=== PATIENT | male | born 1960 | race African-American/Black ===

== ENCOUNTER 2018-08-18 10:45 | Inpatient (IN) | payer OTHER ==
[2018-08-18 11:56] VITALS: BMI 28.8
--- NOTE | 2018-08-18 13:07 | HP ---
COWS - Scale Resting Pulse: 0= [place] 80 or Below Sweatin= Chills/Flushing Restless Observation: 1= Difficult to Sit Still Pupil Size: 2= Moderately Dilated Bone or Joint Aches: 2= Severe Diffuse Aches Runny Nose/ Eye Tearin= None GI Upset > 30mins: 2= Nausea/Diarrhea Tremor Observation: 2= Slight Tremor Visible Yawning Observation: 0= None Anxiety or Irritability: 2=Irritable/Anxious Goose Flesh Skin: 0=Smooth Skin COWS Score: 12 CIWA Score Nausea/Vomitin Muscle Tremors: 1-None Visible, but [place] Anxiety: 3 Agitation: 2 Paroxysmal Sweats: 2 Orientation: 0-Oriented Tacttile Disturbances: 0-None Auditory Disturbances: 0-None Visual Disturbances: 0-None Headache: 3-Moderate CIWA-Ar Total Score: 13 - Admission Criteria [facility]AS[facility] Guidelines: Admission for Medically Managed Detox: Requires at least one of the followin. CIWA greater than 12 2. Seizures within the past 24 hours 3. Delirium tremens within the past 24 hours 4. Hallucinations within the past 24 hours 5. Acute intervention needed for co occurring medical disorder 6. Acute intervention needed for co occurring psychiatric disorder 7. Severe withdrawal that cannot be handled at a lower level of care (continued vomiting, continued diarrhea, abnormal vital signs) requiring intravenous medication and/or fluids 8. Admission [facility] Chief Complaint: HEROIN/ETOH WITHDRAWAL SYMPTOMS Allergies/Adverse Reactions: Allergies Allergy/AdvReac Type Severity Reaction Status Date / Time No Known Allergies Allergy Verified 08/18/18 12:09 History of Present Illness: PATIENT PRESENTS WITH ETOH/HEROIN WITHDRAWAL SYMPTOMS. THIS IS PATIENTS FIRST DETOX ADMISSION [facility] BUT ATTEMPTED DETOX AT [facility] IN 06/2018. PATIENT ALSO WAS IN ER 10 DAYS FOR GI DISTRESS BUT WAS NOT ADMITTED. PATIENT GIVEN LIBRIUM IN ER. PATIENT STARTED DRINKING AT AGE 16 AND SNIFFING HEROIN/COCAINE AT AGE 14. PATIENT HAD PERIOD OF IV HEROIN USE BUT HAS BEEN SNIFFING FOR THE PAST 12 YEARS. PATIENT DRINKS 4 24 OUNCE CANS OF BEER DAILY, LAST DRINK LAST NIGHT, AND SNIFFS 8-10 BAGS OF HEROIN DAILY,, LAST TIME HE USED WAS LAST NIGHT. PT DENIES SEIZURES, BLACK OUTS, OVERDOSE AND FALLS. PATIENT PMH +PPD, HEPATITIS C ( UNTREATED) AND ANXIETY/DEPRESSION. DENIES SI/HI AND SUICIDE ATTEMPTS. + MARIJUANA USE. Exam Limitations: No Limitations - Ebola screening Have you traveled outside of the country in the last 21 days: No Have you had contact with anyone from an Ebola affected area: No Have you been sick,other than usual withdrawal symptoms: No Do you have a fever: No - Review of Systems Constitutional: Chills, Night Sweats, Changes in sleep EENT: reports: No Symptoms Reported Respiratory: reports: No Symptoms reported Cardiac: reports: No Symptoms Reported GI: reports: Nausea, Poor Fluid Intake, Abdominal cramping : reports: No Symptoms Reported Musculoskeletal: reports: Back Pain, Muscle Pain Integumentary: reports: Flushing, Sweating Neuro: reports: Headache, Tremors Endocrine: reports: Flushing Hematology: reports: No Symptoms Reported Psychiatric: reports: Orientated x3, Anxious, Depressed Patient History - Patient Medical History Hx Anemia: No Hx Asthma: No Hx Chronic Obstructive Pulmonary Disease (COPD): No Hx Cancer: No Hx Cardiac Disorders: No Hx Congestive Heart Failure: No Hx Hypertension: No Hx Hypercholesterolemia: No Hx Pacemaker: No HX Cerebrovascular Accident: No Hx Seizures: No Hx Dementia: No Hx Gastrointestinal Disorders: No Hx Liver Disease: No Hx Genitourinary Disorders: No Hx Sexually Transmitted Disorders: No Hx Renal Disease (ESRD): No Hx Thyroid Disease: No Hx Human Immunodeficiency Virus (HIV): No Hx Hepatitis C: Yes (UNTREATED) Hx Depression: Yes Hx Suicide Attempt: No Hx Bipolar Disorder: No Hx Schizophrenia: No - Patient Surgical History Past Surgical History: No - PPD History Previous Implant?: Yes Documented Results: Positive w/o proof PPD to be Administered?: No - Smoking Cessation Smoking history: Current every day smoker Have you smoked in the past 12 months: Yes Aproximately how many cigarettes per day: 6 Hx Chewing Tobacco Use: No Initiated information on smoking cessation: Yes 'Breaking Loose' booklet given: 08/18/18 - Substance & Tx. History Hx Alcohol Use: Yes Hx Substance Use: Yes Substance Use Type: Alcohol, Cocaine, Heroin Hx Substance Use Treatment: Yes - Substances Abused Cocaine Route: Smoking Frequency: Daily Amount used: 1gm Age of first use: 28 Date of Last Use: 08/17/18 Heroin Route: sniff Frequency: Daily Amount used: 10 bags Age of first use: 14 Date of Last Use: 08/17/18 Alcohol Route: Oral Frequency: Daily Amount used: 2-6 (24oz) Age of first use: 16 Date of Last Use: 08/17/18 Marijuana/Hashish Route: Smoking Frequency: Daily Amount used: VARIES Age of first use: 16 Date of Last Use: 08/17/18 Family Disease History - Family Disease History Family Disease History: Diabetes: Mother (ALIVE) Admission Physical Exam [facility] - Vital Signs Vital Signs: Vital Signs - 24 hr 08/18/18 11:54 Temperature 99.3 F Pulse Rate 68 Respiratory 19 Rate Blood Pressure 119/74 - Physical General Appearance: Yes: Nourished, Appropriately Dressed, Tremorous, Sweating, Anxious HEENTM: Yes: EOMI, Hearing grossly Normal, Normal ENT Inspection, Normocephalic , Normal Voice, MORGAN, Pharynx Normal Respiratory: Yes: Chest Non-Tender, Lungs Clear, Normal Breath Sounds, No Respiratory Distress, No Accessory Muscle Use Neck: Yes: No masses,lesions,Nodules, Supple, Trachea in good position Breast: Yes: Breast Exam Deferred Cardiology: Yes: Regular Rhythm, Regular Rate, S1, S2 Abdominal: Yes: Normal Bowel Sounds, Non Tender, Soft Genitourinary: Yes: Within Normal Limits Musculoskeletal: Yes: Back pain, Muscle Pain Extremities: Yes: Normal Inspection, Normal Range of Motion, Non-Tender, Tremors Neurological: Yes: jukebox coin collector II-XII NML intact, Fully Oriented, Alert, Motor Strength 5/5, Normal Response, Depressed Affect Integumentary: Yes: Normal Color, Warm, Moist Lymphatic: Yes: Within Normal Limits - Diagnostic (1) Opioid dependence with withdrawal Current Visit: Yes Status: Acute (2) Alcohol dependence with uncomplicated withdrawal Current Visit: Yes Status: Acute (3) Cocaine dependence Current Visit: Yes Status: Chronic Qualifiers: Substance use status: uncomplicated Qualified Code(s): F14.20 - Cocaine dependence, uncomplicated (4) Marijuana dependence Current Visit: Yes Status: Chronic (5) Anxiety Current Visit: Yes Status: Suspected (6) Depressed affect Current Visit: Yes Status: Suspected Cleared for Admission [facility] - Detox or Rehab [facility] Level of Care: Medically Managed Detox Regimen/Protocol: Methadone/Librium [facility] Breath Alcohol Content Breath Alcohol Content: 0 Urine Drug Screen - Results Drug Screen Negative: No Urine Drug Screen Results: THC-Marijuana, ALETA-Cocaine, BZO-Benzodiazepines
[2018-08-18] MEDS ORDERED: hydrOXYzine PAMOATE 50 MG CAPSULE (FP) PO PRN (13:19)
[2018-08-18] MEDS ORDERED: P-EPHED 60MG/TRIPROLIDI 2.5MG TABLET PO PRN (13:19)
[2018-08-18] MEDS ORDERED: MAGNESIUM HYDROX 2400MG/30ML ORAL SUSPENSION 30 ML CUP PO PRN (13:19)
[2018-08-18] MEDS ORDERED: MAG HYDROX/AL HYDROX/SIMETH 30 ML UNIT-DOSE CUP PO PRN (13:19)
[2018-08-18] MEDS ORDERED: MAGNESIUM CITRATE 300 ML BOTTLE PO PRN (13:19)
[2018-08-18] MEDS ORDERED: guaiFENesin/D-METHORPHAN HB 10 ML UNIT-DOSE CUPS PO PRN (13:19)
[2018-08-18] MEDS ORDERED: NICOTINE POLACRILEX 2 MG GUM BUC PRN (13:19)
[2018-08-18] MEDS ORDERED: ACETAMINOPHEN 325 MG TABLET (FP) PO PRN (13:19)
[2018-08-18] MEDS ORDERED: LOPERAMIDE HCL 2 MG CAPSULE PO PRN (13:19)
[2018-08-18] MEDS ORDERED: IBUPROFEN 400 MG TABLET (FP) PO PRN (13:19)
[2018-08-18] MEDS ORDERED: MENTHOL/PHENOL 1 EACH UD MM PRN (13:19)
[2018-08-18] MEDS ORDERED: chlordiazePOXIDE HCL 25 MG CAPSULE PO PRN (13:20)
[2018-08-18] MEDS ORDERED: METHADONE HCL 10 MG TABLET (FOR DETOX USE ONLY) PO ONE ×2 (14:15→23:00)
--- NOTE | 2018-08-18 16:40 | CONSULT ---
[facility] Psychiatric Consult - Data Date of interview: 08/18/18 Admission source: [facility] Identifying data: Patient is a 57 year old single male, father of one, unemployed (denies receiving financial assistance), and currently homeless. This is patient's first admission to detox at [facility]. Patient admitted to for alcohol and cocaine dependence. Substance Abuse History: - Smoking Cessation. Smoking history: Current every day smoker. Have you smoked in the past 12 months: Yes. Aproximately how many cigarettes per day: 6. Hx Chewing Tobacco Use: No. Initiated information on smoking cessation: Yes. 'Breaking Loose' booklet given: 08/18/18. - Substance & Tx. History. Hx Alcohol Use: Yes. Hx Substance Use: Yes. Substance Use Type : Alcohol, Cocaine, Heroin. Hx Substance Use Treatment: Yes. - Substances Abused. Cocaine. Route: Smoking. Frequency: Daily. Amount used: 1gm. Age of first use: 28. Date of Last Use: 08/17/18. Heroin. Route: sniff. Frequency: Daily. Amount used: 10 bags. Age of first use: 14. Date of Last Use: 08/17/18. Alcohol. Route: Oral. Frequency: Daily. Amount used: 2-6 ( 24oz). Age of first use: 16. Date of Last Use: 08/17/18. Marijuana/ Hashish. Route: Smoking. Frequency: Daily. Amount used: VARIES. Age of first use: 16. Date of Last Use: 08/17/18 Medical History: Hep C Psychiatric History: Patient denies h/o psychiatric hospitalization and suicide attempt. Currently is not seeing an outpatient psychiatrist. States he was in a rehab program at [facility] in [place], recently discharged yesterday. States he was prescribed lexapro and risperdal. Has also been tried on celexa, vistaril, and buspar. As per pharmacy claims most recent prescriptions consist of lexapro 10mg + Remeron 15mg qhs. Presently, patient reports anxiety and poor sleep. Physical/Sexual Abuse/Trauma History: denies. Mental Status Exam - Mental Status Exam Alert and Oriented to: Time, Place, Person Cognitive Function: Good Patient Appearance: Well Groomed Mood: Euthymic Affect: Mood Congruent Patient Behavior: Appropriate, Cooperative Speech Pattern: Clear, Appropriate Voice Loudness: Normal Thought Process: Intact, Goal Oriented Thought Disorder: Not Present Hallucinations: Denies Suicidal Ideation: Denies Homicidal Ideation: Denies Insight/Judgement: Poor Sleep: Fair Appetite: Fair Muscle strength/Tone: Normal Gait/Station: Normal Psychiatric Findings - Problem List ([place] 1, 2,3) (1) Substance induced mood disorder Current Visit: Yes Status: Acute (2) Substance-induced sleep disorder Current Visit: Yes Status: Acute (3) Alcohol dependence with uncomplicated withdrawal Current Visit: Yes Status: Acute (4) Cocaine dependence Current Visit: Yes Status: Chronic Qualifiers: Substance use status: uncomplicated Qualified Code(s): F14.20 - Cocaine dependence, uncomplicated (5) Marijuana dependence Current Visit: Yes Status: Chronic - Initial Treatment Plan Initial Treatment Plan: Psychoeducation provided. Detoxification in progress. Will order Lexapro 10mg + Mirtzapine 15mg qhs. Benefits and side effects discussed. Verbal consent given.
[2018-08-18 21:29] LABS: URINE APPEARANCE CLEAR; URINE BILIRUBIN NEGATIVE (<2.0 mg/dL); URINE COLOR YELLOW; URINE GLUCOSE (UA) NEGATIVE (NEGATIVE); URINE KETONE NEGATIVE (NEGATIVE); URINE LEUK ESTERASE NEGATIVE (NEGATIVE); URINE NITRITE NEGATIVE (NEGATIVE); URINE PROTEIN NEGATIVE (NEGATIVE); URINE UROBILINOGEN 4.0 E.U/dl mg/dL (0.2-1.0)
[2018-08-18] MEDS: MIRTAZAPINE 15 MG TABLET (FP) PO SCH (22:34)
[2018-08-18] MEDS: THIAMINE HCL 100 MG TABLET (FP) PO SCH (22:34)
[2018-08-18] MEDS: chlordiazePOXIDE HCL 25 MG CAPSULE PO SCH ×2 (22:35)
[2018-08-19] MEDS: chlordiazePOXIDE HCL 25 MG CAPSULE PO SCH ×4 (05:45→22:24)
--- NOTE | 2018-08-19 08:55 | EKG ---
Test Reason : Blood Pressure : / mmHG Vent. Rate : 070 BPM Atrial Rate : 070 BPM P-R Int : 158 ms QRS Dur : 088 ms QT Int : 400 ms P-R-T Axes : 051 040 022 degrees QTc Int : 432 ms NORMAL SINUS RHYTHM NORMAL ECG NO PREVIOUS ECGS AVAILABLE Confirmed by GERARD LOO MD ([id number]) on 08/19/2018 8:55:31 AM Referred By: Confirmed By:GERARD LOO MD
[2018-08-19 10:00] LABS: HEMATOCRIT 36.8 % (35.4-49); HEMOGLOBIN 11.5 GM/dL (11.7-16.9); MCH 28.3 pg (25.7-33.7); MCHC 31.2 g/dl (32.0-35.9); MEAN CELL VOLUME 90.5 fl (80-96); MEAN PLT VOLUME 9.4 fl (7.5-11.1); PLATELET COUNT 248 K/MM3 (134-434); RBC 4.06 M/mm3 (4.00-5.60); RDW 12.6 % (11.9-15.9); WHITE BLOOD COUNT 5.1 K/mm3 (4.0-10.0)
[2018-08-19] MEDS ORDERED: METHADONE HCL 10 MG TABLET (FOR DETOX USE ONLY) PO SCH (10:00)
[2018-08-19] MEDS: PRENATAL VITAMINS W/ FOLIC ACID TABLET (FP) PO SCH (10:07)
[2018-08-19] MEDS: ESCITALOPRAM OXALATE 10 MG TABLET (FP) PO SCH (10:07)
[2018-08-19 10:51] LABS: ALBUMIN 3.8 g/dl (3.4-5.0); ALK PHOS 106 U/L (45-117); ANION GAP 7 MMOL/L (8-16); BILIRUBIN,TOTAL 0.8 mg/dL (0.2-1); BLOOD UREA NITROGEN 15 mg/dL (7-18); CALCIUM 9.4 mg/dL (8.5-10.1); CHLORIDE 101 mmol/L (98-107); CO2 30 mmol/L (21-32); CREATININE 1.1 mg/dL (0.55-1.3); GLUCOSE,RANDOM 108 mg/dL (74-106); SGOT/AST 53 U/L (15-37); SGPT/ALT 88 U/L (13-61); SODIUM 139 mmol/L (136-145); TOT PROT 7.2 g/dl (6.4-8.2)
--- NOTE | 2018-08-19 12:13 | PN ---
[facility] CIWA - CIWA Score Nausea/Vomitin Muscle Tremors: 4-Moderate,w/Arms Extend Anxiety: 4-Mod. Anxious/Guarded Agitation: 2 Paroxysmal Sweats: 3 Orientation: 0-Oriented Tacttile Disturbances: 0-None Auditory Disturbances: 0-None Visual Disturbances: 0-None Headache: 1-Very Mild CIWA-Ar Total Score: 16 BHS COWS - Scale Resting Pulse: 0= [place] 80 or Below Sweatin= Chills/Flushing Restless Observation: 3= Extraneous Movement Pupil Size: 0= Normal to Room Light Bone or Joint Aches: 2= Severe Diffuse Aches Runny Nose/ Eye Tearin= Runny Nose/Eyes GI Upset > 30mins: 3= Vomiting/Diarrhea Tremor Observation of Outstretched Hands: 2= Slight Tremor Visible Yawning Observation: 0= None Anxiety or Irritability: 2=Irritable/Anxious Goose Flesh Skin: 0=Smooth Skin COWS Score: 15 BHS Progress Note (SOAP) Subjective: Headache, LBP, tremor, interrupted sleep Objective: 08/19/18 12:11 Last Vital Signs Temp Pulse Resp BP Pulse Ox 98.6 F 67 18 98/66 08/19/18 10:00 08/19/18 10:00 08/19/18 10:00 08/19/18 10:00 Hypotension noted Laboratory Tests 08/18/18 08/19/18 08/19/18 14:22 06:30 06:30 WBC 5.1 RBC 4.06 Hgb 11.5 L Hct 36.8 MCV 90.5 MCH 28.3 MCHC 31.2 L RDW 12.6 Plt Count 248 MPV 9.4 Sodium Potassium Chloride Carbon Dioxide Anion Gap BUN Creatinine Creat Clearance w eGFR Random Glucose Calcium Total Bilirubin AST ALT Alkaline Phosphatase Total Protein Albumin Urine Color Yellow Urine Appearance Clear Urine pH 6.0 Ur Specific [place] 1.024 Urine Protein Negative Urine Glucose (UA) Negative Urine Ketones Negative Urine Blood Negative Urine Nitrite Negative Urine Bilirubin Negative Urine Urobilinogen 4.0 e.u/dl Ur Leukocyte Esterase Negative HIV 1&2 Antibody Screen Negative HIV P24 Antigen Negative 08/19/18 06:30 WBC RBC Hgb Hct MCV MCH MCHC RDW Plt Count MPV Sodium 139 Potassium 5.0 Chloride 101 Carbon Dioxide 30 Anion Gap 7 L BUN 15 Creatinine 1.1 Creat Clearance w eGFR > 60 Random Glucose 108 H Calcium 9.4 Total Bilirubin 0.8 AST 53 H ALT 88 H Alkaline Phosphatase 106 Total Protein 7.2 Albumin 3.8 Urine Color Urine Appearance Urine pH Ur Specific [place] Urine Protein Urine Glucose (UA) Urine Ketones Urine Blood Urine Nitrite Urine Bilirubin Urine Urobilinogen Ur Leukocyte Esterase HIV 1&2 Antibody Screen HIV P24 Antigen Labs reviewed Assessment: 08/19/18 12:12 Withdrawal symptoms Plan: Continue detox Encouraged PO water intake
[2018-08-19] MEDS: MELATONIN 5 MG TABLETS PO PRN (22:24)
[2018-08-19] MEDS: MIRTAZAPINE 15 MG TABLET (FP) PO SCH (22:24)
[2018-08-19] MEDS: THIAMINE HCL 100 MG TABLET (FP) PO SCH (22:24)
[2018-08-20] MEDS: chlordiazePOXIDE HCL 25 MG CAPSULE PO SCH ×2 (05:33→10:08)
[2018-08-20] MEDS: PRENATAL VITAMINS W/ FOLIC ACID TABLET (FP) PO SCH (10:07)
[2018-08-20] MEDS: ESCITALOPRAM OXALATE 10 MG TABLET (FP) PO SCH (10:08)
[2018-08-20] MEDS: METHADONE HCL 5 MG TABLET (FOR DETOX USE ONLY) PO SCH (10:08)
--- NOTE | 2018-08-20 12:23 | PN ---
[facility] CIWA - CIWA Score Nausea/Vomitin-No Nausea/No Vomiting Muscle Tremors: None Anxiety: 2 Agitation: 2 Paroxysmal Sweats: 1-Minimal [place] Moist Orientation: 0-Oriented Tacttile Disturbances: 0-None Auditory Disturbances: 0-None Visual Disturbances: 0-None Headache: 0-None Present CIWA-Ar Total Score: 5 S COWS - Scale Resting Pulse: 0= [place] 80 or Below Sweatin= Chills/Flushing Restless Observation: 1= Difficult to Sit Still Pupil Size: 1= Pupils >than Normal Bone or Joint Aches: 0= None Runny Nose/ Eye Tearin= None GI Upset > 30mins: 0= None Tremor Observation of Outstretched Hands: 0= None Yawning Observation: 0= None Anxiety or Irritability: 2=Irritable/Anxious Goose Flesh Skin: 0=Smooth Skin COWS Score: 5 S Progress Note (SOAP) Subjective: PATIENT ANXIOUS/RESTLESS WITH OCCASIONAL CHILLS/SWEATING. Objective: 08/20/18 12:22 Vital Signs Temperature 96.6 F L 08/20/18 09:18 Pulse Rate 77 08/20/18 09:18 Respiratory Rate 18 08/20/18 09:18 Blood Pressure 105/60 08/20/18 09:18 O2 Sat by Pulse Oximetry (%) Laboratory Tests 08/18/18 08/19/18 08/19/18 14:22 06:30 06:30 WBC 5.1 RBC 4.06 Hgb 11.5 L Hct 36.8 MCV 90.5 MCH 28.3 MCHC 31.2 L RDW 12.6 Plt Count 248 MPV 9.4 Sodium Potassium Chloride Carbon Dioxide Anion Gap BUN Creatinine Creat Clearance w eGFR Random Glucose Calcium Total Bilirubin AST ALT Alkaline Phosphatase Total Protein Albumin Urine Color Yellow Urine Appearance Clear Urine pH 6.0 Ur Specific [place] 1.024 Urine Protein Negative Urine Glucose (UA) Negative Urine Ketones Negative Urine Blood Negative Urine Nitrite Negative Urine Bilirubin Negative Urine Urobilinogen 4.0 e.u/dl Ur Leukocyte Esterase Negative RPR Titer HIV 1&2 Antibody Screen Negative HIV P24 Antigen Negative 08/19/18 08/19/18 06:30 06:30 WBC RBC Hgb Hct MCV MCH MCHC RDW Plt Count MPV Sodium 139 Potassium 5.0 Chloride 101 Carbon Dioxide 30 Anion Gap 7 L BUN 15 Creatinine 1.1 Creat Clearance w eGFR > 60 Random Glucose 108 H Calcium 9.4 Total Bilirubin 0.8 AST 53 H ALT 88 H Alkaline Phosphatase 106 Total Protein 7.2 Albumin 3.8 Urine Color Urine Appearance Urine pH Ur Specific [place] Urine Protein Urine Glucose (UA) Urine Ketones Urine Blood Urine Nitrite Urine Bilirubin Urine Urobilinogen Ur Leukocyte Esterase RPR Titer Nonreactive HIV 1&2 Antibody Screen HIV P24 Antigen PE: SKIN WARM AND DRY ALERT AND ORIENTED X 3 EXT FULL ROM AMB AD JAMES MILDLY RESTLESS, PACING IN HALLWAY Assessment: 08/20/18 12:23 WITHDRAWAL SX Plan: CONTINUE DETOX ENCOURAGE ORAL FLUIDS CONTINUE TO MONITOR CLINICALLY
[2018-08-20] MEDS: chlordiazePOXIDE 5 MG CAPSULE PO SCH ×2 (17:05→22:17)
[2018-08-20] MEDS: THIAMINE HCL 100 MG TABLET (FP) PO SCH (22:17)
[2018-08-20] MEDS: MIRTAZAPINE 15 MG TABLET (FP) PO SCH (22:18)
[2018-08-21] MEDS: chlordiazePOXIDE 5 MG CAPSULE PO SCH ×2 (05:30→10:03)
[2018-08-21] MEDS ORDERED: IBUPROFEN 400 MG TABLET (FP) PO ONE (10:00)
[2018-08-21] MEDS: ESCITALOPRAM OXALATE 10 MG TABLET (FP) PO SCH (10:02)
[2018-08-21] MEDS: PRENATAL VITAMINS W/ FOLIC ACID TABLET (FP) PO SCH (10:02)
[2018-08-21] MEDS: METHADONE HCL 5 MG TABLET (FOR DETOX USE ONLY) PO SCH (10:03)
--- NOTE | 2018-08-21 15:31 | PN ---
BHS Progress Note (SOAP) Subjective: Sweating, tremor, headache (pain scale 8/10) Objective: 08/21/18 15:30 Last Vital Signs Temp Pulse Resp BP Pulse Ox 98.0 F 76 18 119/68 08/21/18 13:13 08/21/18 13:13 08/21/18 13:13 08/21/18 13:13 Laboratory Tests 08/18/18 08/19/18 08/19/18 14:22 06:30 06:30 WBC 5.1 RBC 4.06 Hgb 11.5 L Hct 36.8 MCV 90.5 MCH 28.3 MCHC 31.2 L RDW 12.6 Plt Count 248 MPV 9.4 Sodium Potassium Chloride Carbon Dioxide Anion Gap BUN Creatinine Creat Clearance w eGFR Random Glucose Calcium Total Bilirubin AST ALT Alkaline Phosphatase Total Protein Albumin Urine Color Yellow Urine Appearance Clear Urine pH 6.0 Ur Specific [place] 1.024 Urine Protein Negative Urine Glucose (UA) Negative Urine Ketones Negative Urine Blood Negative Urine Nitrite Negative Urine Bilirubin Negative Urine Urobilinogen 4.0 e.u/dl Ur Leukocyte Esterase Negative RPR Titer HIV 1&2 Antibody Screen Negative HIV P24 Antigen Negative 08/19/18 08/19/18 06:30 06:30 WBC RBC Hgb Hct MCV MCH MCHC RDW Plt Count MPV Sodium 139 Potassium 5.0 Chloride 101 Carbon Dioxide 30 Anion Gap 7 L BUN 15 Creatinine 1.1 Creat Clearance w eGFR > 60 Random Glucose 108 H Calcium 9.4 Total Bilirubin 0.8 AST 53 H ALT 88 H Alkaline Phosphatase 106 Total Protein 7.2 Albumin 3.8 Urine Color Urine Appearance Urine pH Ur Specific [place] Urine Protein Urine Glucose (UA) Urine Ketones Urine Blood Urine Nitrite Urine Bilirubin Urine Urobilinogen Ur Leukocyte Esterase RPR Titer Nonreactive HIV 1&2 Antibody Screen HIV P24 Antigen Labs reviewed Assessment: 08/21/18 15:30 Withdrawal symptoms Plan: Continue detox Encouraged PO water intake Motrin 800mg PO x 1 dose for headache (pain scale 8/10)
[2018-08-21] MEDS: chlordiazePOXIDE HCL 10 MG CAPSULE PO SCH ×2 (17:45→22:23)
[2018-08-21] MEDS: THIAMINE HCL 100 MG TABLET (FP) PO SCH (22:23)
[2018-08-21] MEDS: MIRTAZAPINE 15 MG TABLET (FP) PO SCH (22:23)
[2018-08-21] MEDS: MELATONIN 5 MG TABLETS PO PRN (22:24)
[2018-08-22] MEDS: chlordiazePOXIDE HCL 10 MG CAPSULE PO SCH ×2 (05:34→10:12)
[2018-08-22] MEDS ORDERED: METHADONE HCL 10 MG TABLET (FOR DETOX USE ONLY) PO SCH (10:00)
[2018-08-22] MEDS: ESCITALOPRAM OXALATE 10 MG TABLET (FP) PO SCH (10:12)
[2018-08-22] MEDS: PRENATAL VITAMINS W/ FOLIC ACID TABLET (FP) PO SCH (10:12)
--- NOTE | 2018-08-22 14:48 | PN ---
BHS Progress Note (SOAP) Subjective: States feeling somewhat better. Still having some sweating at night. Feels a little anxious still. No nausea or vomiting. Objective: A&O x 3. Faint tremors of hands on extension. Gait steady. Abd S/NT/BS+ Vital Signs 08/22/18 08/22/18 09:06 13:20 Temperature 96.1 F L 98.4 F Pulse Rate 76 71 Respiratory 18 18 Rate Blood Pressure 114/69 105/65 Assessment: Withdrawal symptoms. Plan: Continue detox. Encouraged increased water intake.
[2018-08-22] MEDS: THIAMINE HCL 100 MG TABLET (FP) PO SCH (22:23)
[2018-08-22] MEDS: MIRTAZAPINE 15 MG TABLET (FP) PO SCH (22:23)
[2018-08-23 05:58] VITALS: BP 103/59; PULSE 71; TEMP 98
[2018-08-23] MEDS ORDERED: METHADONE HCL 5 MG TABLET (FOR DETOX USE ONLY) PO SCH (06:00)
[2018-08-23] MEDS: PRENATAL VITAMINS W/ FOLIC ACID TABLET (FP) PO SCH (10:18)
[2018-08-23] MEDS: ESCITALOPRAM OXALATE 10 MG TABLET (FP) PO SCH (10:18)
--- NOTE | 2018-08-23 10:34 | DS ---
[facility] Detox Discharge Summary Admission Date: 08/18/18 Discharge Date: 08/23/18 - History Present History: Alcohol Dependence, Cannabis Dependence, Cocaine Dependence, Opioid Dependence Additional Comments: Detox stay uneventful. Patient accepted rehab referral to outside rehab facility. Patient instructed to follow up with his PCP after discharged from rehab. - Physical Exam Results Vital Signs: Vital Signs Temperature 98 F 08/23/18 05:57 Pulse Rate 71 08/23/18 05:57 Respiratory Rate 18 08/23/18 05:57 Blood Pressure 103/59 L 08/23/18 05:57 O2 Sat by Pulse Oximetry (%) Pertinent Admission Physical Exam Findings: Withdrawal symptoms Laboratory Tests 08/18/18 08/19/18 08/19/18 14:22 06:30 06:30 WBC 5.1 RBC 4.06 Hgb 11.5 L Hct 36.8 MCV 90.5 MCH 28.3 MCHC 31.2 L RDW 12.6 Plt Count 248 MPV 9.4 Sodium Potassium Chloride Carbon Dioxide Anion Gap BUN Creatinine Creat Clearance w eGFR Random Glucose Calcium Total Bilirubin AST ALT Alkaline Phosphatase Total Protein Albumin Urine Color Yellow Urine Appearance Clear Urine pH 6.0 Ur Specific [place] 1.024 Urine Protein Negative Urine Glucose (UA) Negative Urine Ketones Negative Urine Blood Negative Urine Nitrite Negative Urine Bilirubin Negative Urine Urobilinogen 4.0 e.u/dl Ur Leukocyte Esterase Negative RPR Titer HIV 1&2 Antibody Screen Negative HIV P24 Antigen Negative 08/19/18 08/19/18 06:30 06:30 WBC RBC Hgb Hct MCV MCH MCHC RDW Plt Count MPV Sodium 139 Potassium 5.0 Chloride 101 Carbon Dioxide 30 Anion Gap 7 L BUN 15 Creatinine 1.1 Creat Clearance w eGFR > 60 Random Glucose 108 H Calcium 9.4 Total Bilirubin 0.8 AST 53 H ALT 88 H Alkaline Phosphatase 106 Total Protein 7.2 Albumin 3.8 Urine Color Urine Appearance Urine pH Ur Specific [place] Urine Protein Urine Glucose (UA) Urine Ketones Urine Blood Urine Nitrite Urine Bilirubin Urine Urobilinogen Ur Leukocyte Esterase RPR Titer Nonreactive HIV 1&2 Antibody Screen HIV P24 Antigen Labs reviewed - Treatment Hospital Course: Detox Protocol Followed, Detoxed Safely, Responded well, Discharged Condition Good, Rehab Referral Accepted - Medication Discharge Medications: Ambulatory Orders Escitalopram Oxalate [Lexapro -] 10 mg PO DAILY 08/18/18 Mirtazapine 15 mg PO HS 08/18/18 - Diagnosis (1) PPD positive Current Visit: Yes Status: Chronic (2) Hepatitis C Current Visit: Yes Status: Chronic (3) Depression Current Visit: Yes Status: Chronic (4) Nicotine dependence Current Visit: Yes Status: Chronic Qualifiers: Nicotine product type: cigarettes Substance use status: in remission Qualified Code(s): F17.211 - Nicotine dependence, cigarettes, in remission (5) Alcohol dependence with uncomplicated withdrawal Current Visit: Yes Status: Acute (6) Opioid dependence with withdrawal Current Visit: Yes Status: Acute (7) Cocaine dependence Current Visit: Yes Status: Chronic Qualifiers: Substance use status: uncomplicated Qualified Code(s): F14.20 - Cocaine dependence, uncomplicated (8) Marijuana dependence Current Visit: Yes Status: Chronic (9) Anxiety Current Visit: Yes Status: Chronic - AMA Did Patient Leave Against Medical Advice: No (Patient accepted admission to outside inpatient rehab)
== END 2018-08-23 12:16 | disposition home or self-care (01) | DRG 773 ==
LOC: YASAS 10:45 → Y3N 14:05
PROC: HZ2ZZZZ Detoxification Services for Substance Abuse Treatment (ICD-10-PCS; principal; 2018-08-18)
DX: F11.23 Opioid dependence with withdrawal (principal); F10.230 Alcohol dependence with withdrawal, uncomplicated; F14.20 Cocaine dependence, uncomplicated; F12.20 Cannabis dependence, uncomplicated; F17.210 Nicotine dependence, cigarettes, uncomplicated; F32.9 Major depressive disorder, single episode, unspecified; F41.9 Anxiety disorder, unspecified; F19.24 Other psychoactive substance dependence with psychoactive substance-induced mood disorder; F19.282 Other psychoactive substance dependence with psychoactive substance-induced sleep disorder; B18.2 Chronic viral hepatitis C; R45.89 Other symptoms and signs involving emotional state; R76.11 Nonspecific reaction to tuberculin skin test without active tuberculosis
CPT/HCPCS: 36415; 71046-TC-FY; 80053; 81003; 85027; 86593; 87389; 93005; 93010